=== PATIENT | male | born 1960 | race American Indian/Alaskan Native ===

== ENCOUNTER 2020-12-22 15:37 | Emergency (ER) | payer BC, OTHER ==
[~2020-12-22] VITALS: Ht 182.9 cm; Wt 95.5 kg
[~2020-12-22 15:37] MED LIST: IBUP-1984 PO; LACRIL OP; VALA500T41 PO; atenolol; ramipril
[2020-12-22] MEDS ORDERED: normal saline 1000ML IV soln IV ONE (15:55)
[2020-12-22] MEDS: folic acid 1mg/0.2ml inj IV ONE ×2 (15:55→16:37)
[2020-12-22] MEDS ORDERED: CefTRIAXone 2gm/D5W 50ml BAG 50 ML IV ONE (15:55)
[2020-12-22] MEDS ORDERED: thiamine 100mg/ml 2ml inj. IV ONE (15:55)
[2020-12-22 16:47] LABS: BASOPHILS # (AUTO) 0.1 X10'3 (0-0.2); BASOPHILS % (AUTO) 0.6 % (0-1); EOSINOPHILS # (AUTO) 0.1 X10'3 (0-0.9); EOSINOPHILS % (AUTO) 0.8 % (0-6); HEMATOCRIT 33.6 % (42.0-52.0); HEMOGLOBIN 11.4 g/dl (14.0-17.9); LYMPHOCYTES # (AUTO) 1.3 X10'3 (1.1-4.8); LYMPHOCYTES % (AUTO) 13.1 % (21-51); MEAN CORPUSCULAR HEMOGLOBIN 35.5 PG (27.0-31.0); MEAN CORPUSCULAR VOLUME 104.5 FL (78-98); MEAN PLATELET VOLUME 10.3 FL (7.4-10.4); MONOCYTES # (AUTO) 1.1 X10'3 (0-0.9); MONOCYTES % (AUTO) 10.8 % (2-12); NEUTROPHILS # (AUTO) 7.4 X10'3 (1.8-7.7); NEUTROPHILS % (AUTO) 74.7 % (42-75); PLATELET COUNT 104 X10'3 (140-440); RED BLOOD COUNT 3.21 X10'6 (4.70-6.10); RED CELL DISTRIBUTION WIDTH 14.1 % (11.5-14.5); WHITE BLOOD COUNT 9.8 X10'3 (4.5-11.0)
[2020-12-22 17:11] LABS: ALANINE AMINOTRANSFERASE 50 U/L (12-78); ALKALINE PHOSPHATASE 91 IU/L (46-116); ANION GAP 14 (8-16); ASPARTATE AMINO TRANSFERASE 181 U/L (10-37); BILIRUBIN,TOTAL 4.2 MG/DL (0.1-1.0); BLOOD UREA NITROGEN 15 MG/DL (7-18); BUN/CREATININE RATIO 9.6 (5.4-32.0); CALCIUM 7.9 MG/DL (8.5-10.1); CHLORIDE 96 MMOL/L (99-107); CREATININE 1.56 MG/DL (0.60-1.10); ETHANOL < 0.010 GM/DL (0.0-0.010); GLUCOSE 102 MG/DL (70-104); POTASSIUM 3.8 MMOL/L (3.5-5.1); SODIUM 133 MMOL/L (135-145); TOTAL CARBON DIOXIDE 22.8 MMOL/L (24-32); TROPONIN I < 0.04 NG/ML (0.0-0.05); eGFR 45 ML/MIN
--- NOTE | 2020-12-22 17:11 | NUR ---
patient reports drinkimg 5-6 bottles of wine daily
--- NOTE | 2020-12-22 17:36 | NUR ---
TO CT SCAN
[2020-12-22 17:51] LABS: ALBUMIN/GLOBULIN RATIO 0.3 (1.1-1.5); LIPASE 195 U/L (73-393)
[2020-12-22] MEDS ORDERED: iohexol 350MG/ML 100ml bottle IV ONE (18:46)
[2020-12-22] MEDS ORDERED: iohexol 350 MG/ML 50ML vial IV ONE (18:47)
[2020-12-22 19:11] LABS: CLARITY,URINE CLEAR (Clear); COLOR,URINE YELLOW (Yellow); GLUCOSE, URINE NEGATIVE (Neg); KETONES,URINE TRACE mg/dl (Neg); LEUKOCYTE ESTERASE ,URINE TRACE (Neg); NITRITES, URINE POSITIVE (Neg); OCCULT BLOOD,URINE LARGE (Neg); PH,URINE 6.5 (4.8-8.0); PROTEIN,URINE 30 mg/dl (Neg)
[2020-12-22 19:19] LABS: URINE AMPHETAMINE SCREEN NEGATIVE (Neg); URINE BARBITUATE SCREEN NEGATIVE (Neg); URINE BENZODIAZEPINES SCREEN NEGATIVE (Neg); URINE CANNABINOID SCREEN NEGATIVE (Neg); URINE COCAINE SCREEN NEGATIVE (Neg); URINE METHADONE SCREEN NEGATIVE (Neg); URINE OPIATE SCREEN NEGATIVE (Neg); URINE PHENCYCLIDINE SCREEN NEGATIVE (Neg)
[2020-12-22 19:25] LABS: UA COLLECTION TYPE NON-SPECIFIED
[2020-12-22 19:26] LABS: BACTERIA,URINE FEW /HPF (Neg)
[2020-12-22 19:27] LABS: SQUAMOUS EPITHELIAL CELL,UR FEW /LPF (FEW)
[2020-12-22] MEDS ORDERED: LIDOcaine 2% 10ml TOPICAL JELLY (Urojet) TP ONE (21:00)
--- NOTE | 2020-12-22 21:14 | NUR ---
patient used urinal : 300 dk maggie urine in urinal but his pants and bed soaked in urine, pericare done, patient oob to chair and assited cleaning himself up, bandaid ti scab he scratched on back: complete linen change, dressing removed from posterior right calf: asked yelitza morales to look at it with me, clean gown and socks applied. 3 warm blankets
[2020-12-22] MEDS ORDERED: LORazepam 2 mg/ml vial IV ONE (23:15)
[2020-12-23] MEDS ORDERED: ciprofloxacin 0.3% 2.5ml ophthalmic solution LEFTEYE ONE (01:55)
--- NOTE | 2020-12-23 02:03 | NUR ---
MIN FROM [facility] FOR CONDITION REPORT. REPORT GIVEN TO MELVI MOTA. PATIENT IS AWARE THAT HIS CARE WILL BE PROVIDED BY [facility], [facility] IN [place], [place].
--- NOTE | 2020-12-23 02:36 | NUR ---
SPOKE TO CHEMA FROM [facility] REGARDING FIXED WING VS HELICOPTER. HELICOPTER WOULD NEED TO REFUEL. DR MASTERSON IS OK WITH PATIENT FLYING HELICOPTER AND HAVING TO STOP FOR FUEL. [facility] CAKLLED BACK FOR HELICOPTER
--- NOTE | 2020-12-23 03:17 | NUR ---
Spoke to patient's daughter and updated her on the pending transfer.
--- NOTE | 2020-12-23 04:15 | NUR ---
[facility] ARRIVED FOR PATIENT TRANSFER. REPORT TO FLIGHT STAFF.
[2020-12-23] MEDS ORDERED: acetaminophen 325mg tablet PO ONE (04:20)
[2020-12-23 04:45] VITALS: BP 131/104
== END 2020-12-23 04:47 | disposition short-term general hospital (02) ==
LOC: ER 15:38
DX: S05.02XA Injury of conjunctiva and corneal abrasion without foreign body, left eye, initial encounter (principal); Z20.822 Contact with and (suspected) exposure to COVID-19; I72.3 Aneurysm of iliac artery; K70.31 Alcoholic cirrhosis of liver with ascites; A41.9 Sepsis, unspecified organism; L03.115 Cellulitis of right lower limb; R41.0 Disorientation, unspecified; R07.81 Pleurodynia; R53.83 Other fatigue
CPT/HCPCS: 36415; 51702; 70450; 71045; 74176; 75635; 76700; 80053; 80305; 80320; 81001; 82140; 82948; 83605; 83690; 84145; 84484; 85025; 85610; 87040; 87088; 87635; 93005; 96361; 96365; 96375; 99291; 99292; C9803; J0696; J2060; J3411; J3490; J7030; Q9967

== ENCOUNTER 2021-03-02 08:18 | Day surgery (SDC) | payer BC, OTHER ==
[~2021-03-02] VITALS: Ht 182.9 cm; Wt 92.4 kg
[2021-03-02] VITALS (8 sets, daily range): BP systolic 127–139; BP diastolic 87–98
[2021-03-02] MEDS ORDERED: SPIR50TA PO (09:15)
[2021-03-02] MEDS ORDERED: THIA50TA10 PO (09:15)
[2021-03-02] MEDS ORDERED: BACI3.5O5 EACHEYE (09:15)
[2021-03-02] MEDS ORDERED: OMEP-50 PO (09:15)
[2021-03-02] MEDS ORDERED: ATR0.5NEB IH (09:21)
[2021-03-02] MEDS ORDERED: CHOL100046 PO (09:21)
[2021-03-02] MEDS ORDERED: LACT10SO3 PO (09:21)
[2021-03-02] MEDS ORDERED: FOLI0.4T14 PO (09:21)
[2021-03-02] MEDS ORDERED: ZINC50TA67 PO (09:21)
[2021-03-02] MEDS ORDERED: RIFA550T PO (09:21)
[2021-03-02] MEDS ORDERED: FURO-149 PO (09:21)
[2021-03-02] MEDS ORDERED: LORA10TA7 PO (09:21)
[2021-03-02] MEDS ORDERED: MELA5TAB12 PO (09:21)
[2021-03-02] MEDS ORDERED: MULT-1085 PO (09:26)
[2021-03-02] MEDS ORDERED: DEXT15LI3 PO (09:26)
[2021-03-02] MEDS ORDERED: HYDR-3686 PO (09:26)
[2021-03-02] MEDS ORDERED: OLAN5TAB5 PO (09:26)
[2021-03-02] MEDS ORDERED: DEXT15DR7 OP (09:26)
[2021-03-02] MEDS ORDERED: ACET-1008 PO (09:26)
[2021-03-02] MEDS ORDERED: albumin 25% 100mL bottle x 1 IV PRN (10:30)
[2021-03-02] MEDS ORDERED: normal saline 1000ml 1,000 ML IV PRN (10:35)
== END 2021-03-02 11:15 | disposition home or self-care (01) ==
LOC: SSTAY O 08:18
PROVIDERS: ATTEND Radiology Vascular & Interventional Radiology
DX: K70.31 Alcoholic cirrhosis of liver with ascites (principal); K21.9 Gastro-esophageal reflux disease without esophagitis; F20.9 Schizophrenia, unspecified; I11.0 Hypertensive heart disease with heart failure; I50.9 Heart failure, unspecified; Z90.49 Acquired absence of other specified parts of digestive tract; Z98.890 Other specified postprocedural states; Z72.89 Other problems related to lifestyle; Z79.899 Other long term (current) drug therapy
CPT/HCPCS: 49083

== ENCOUNTER 2021-03-28 12:19 | Emergency (ER) | payer BC, OTHER ==
[~2021-03-28] VITALS: Ht 182.9 cm; Wt 85.5 kg
[~2021-03-28 12:19] MED LIST changes: +ACET-1008 PO; +ATR0.5NEB IH; +BACI3.5O5 EACHEYE; +CHOL100046 PO; +DEXT15DR7 OP; +DEXT15LI3 PO; +FOLI0.4T14 PO; +FURO-149 PO; +HYDR-3686 PO; -IBUP-1984 PO; +LACT10SO3 PO; +LORA10TA7 PO; +MELA5TAB12 PO; +MULT-1085 PO; +OLAN5TAB5 PO; +OMEP-50 PO; +RIFA550T PO; +SPIR50TA PO; +THIA50TA10 PO; -VALA500T41 PO; +ZINC50TA67 PO; -atenolol; -ramipril
[2021-03-28 13:47] LABS: BASOPHILS # (AUTO) 0.1 X10'3 (0-0.2); BASOPHILS % (AUTO) 0.8 % (0-1); EOSINOPHILS # (AUTO) 0.2 X10'3 (0-0.9); EOSINOPHILS % (AUTO) 3.2 % (0-6); HEMATOCRIT 35.3 % (42.0-52.0); HEMOGLOBIN 11.8 g/dl (14.0-17.9); LYMPHOCYTES # (AUTO) 1.5 X10'3 (1.1-4.8); LYMPHOCYTES % (AUTO) 22.3 % (21-51); MEAN CORPUSCULAR HEMOGLOBIN 29.6 PG (27.0-31.0); MEAN CORPUSCULAR HGB CONC 33.5 g/dL (33.0-36.5); MEAN CORPUSCULAR VOLUME 88.5 FL (78-98); MEAN PLATELET VOLUME 8.3 FL (7.4-10.4); MONOCYTES # (AUTO) 0.8 X10'3 (0-0.9); MONOCYTES % (AUTO) 11.4 % (2-12); NEUTROPHILS # (AUTO) 4.3 X10'3 (1.8-7.7); NEUTROPHILS % (AUTO) 62.3 % (42-75); PLATELET COUNT 181 X10'3 (140-440); RED BLOOD COUNT 3.99 X10'6 (4.70-6.10); RED CELL DISTRIBUTION WIDTH 14.2 % (11.5-14.5); WHITE BLOOD COUNT 6.9 X10'3 (4.5-11.0)
[2021-03-28 13:59] LABS: ALANINE AMINOTRANSFERASE 10 U/L (12-78); ALBUMIN 1.8 G/DL (3.4-5.0); ALBUMIN/GLOBULIN RATIO 0.3 (1.1-1.5); ALKALINE PHOSPHATASE 86 IU/L (46-116); ANION GAP 9 (8-16); ASPARTATE AMINO TRANSFERASE 25 U/L (10-37); BLOOD UREA NITROGEN 10 MG/DL (7-18); BUN/CREATININE RATIO 10.9 (5.4-32.0); CALCIUM 7.9 MG/DL (8.5-10.1); CHLORIDE 101 MMOL/L (99-107); CREATININE 0.92 MG/DL (0.60-1.10); GLUCOSE 119 MG/DL (70-104); POTASSIUM 3.4 MMOL/L (3.5-5.1); SODIUM 134 MMOL/L (135-145); TOTAL PROTEIN 7.6 G/DL (6.4-8.2); eGFR 84 ML/MIN
[2021-03-28] MEDS ORDERED: CEPH-585 PO (15:39)
[2021-03-28 16:07] VITALS: BP 136/99
[2021-03-28] MEDS ORDERED: CEFD300C22 PO (16:14)
== END 2021-03-28 16:09 | disposition home or self-care (01) ==
LOC: ER 12:19
DX: S81.802A Unspecified open wound, left lower leg, initial encounter (principal); S81.801A Unspecified open wound, right lower leg, initial encounter; R50.9 Fever, unspecified; R11.10 Vomiting, unspecified; I10 Essential (primary) hypertension; Z72.89 Other problems related to lifestyle; Z56.0 Unemployment, unspecified; Z79.2 Long term (current) use of antibiotics; Z79.899 Other long term (current) drug therapy; K70.30 Alcoholic cirrhosis of liver without ascites; X58.XXXA Exposure to other specified factors, initial encounter; Y93.89 Activity, other specified; Y92.89 Other specified places as the place of occurrence of the external cause; Y99.8 Other external cause status
CPT/HCPCS: 36415; 71045; 80053; 83605; 84145; 85025; 87040; 99284

== ENCOUNTER 2021-12-07 07:09 | Day surgery (SDC) | payer BC, OTHER ==
[2021-12-07] VITALS (10 sets, daily range): BP systolic 109–128; BP diastolic 78–90
[~2021-12-07] VITALS: Ht 182.9 cm; Wt 83.1 kg
[~2021-12-07 07:09] MED LIST changes: +LIDOcaine 1%/PF 5ML 10 MG/ML VIAL SQ ONE; -OMEP-50 PO; +OMEP20CA16 PO
[2021-12-07] MEDS: albumin 25% 100mL bottle x 1 IV PRN ×2 (09:08→09:48)
== END 2021-12-07 11:00 | disposition home or self-care (01) ==
LOC: SSTAY O 07:09
PROVIDERS: ATTEND Radiology Vascular & Interventional Radiology
DX: K70.31 Alcoholic cirrhosis of liver with ascites (principal); K21.9 Gastro-esophageal reflux disease without esophagitis; F20.9 Schizophrenia, unspecified; I11.0 Hypertensive heart disease with heart failure; I50.9 Heart failure, unspecified; F10.20 Alcohol dependence, uncomplicated; Z98.890 Other specified postprocedural states; Z79.899 Other long term (current) drug therapy; Z88.8 Allergy status to other drugs, medicaments and biological substances
CPT/HCPCS: 49083; J3490; P9047

== ENCOUNTER 2022-08-10 12:29 | Emergency (ER) | payer BC, OTHER ==
[~2022-08-10] VITALS: Ht 182.9 cm; Wt 70.0 kg
[~2022-08-10 12:29] MED LIST changes: -ATR0.5NEB IH; -DEXT15LI3 PO; -LIDOcaine 1%/PF 5ML 10 MG/ML VIAL SQ ONE; -OLAN5TAB5 PO
[2022-08-10 12:47] VITALS: BP 99/77
[2022-08-10 13:24] LABS: BASOPHILS % (AUTO) 0.7 % (0-1); EOSINOPHILS # (AUTO) 0.1 X10'3 (0-0.9); EOSINOPHILS % (AUTO) 2.3 % (0-6); HEMATOCRIT 24.1 % (42.0-52.0); HEMOGLOBIN 7.7 g/dl (14.0-17.9); LYMPHOCYTES # (AUTO) 1.2 X10'3 (1.1-4.8); LYMPHOCYTES % (AUTO) 29.2 % (21-51); MEAN CORPUSCULAR HEMOGLOBIN 28.2 PG (27.0-31.0); MEAN CORPUSCULAR HGB CONC 32.1 g/dL (33.0-36.5); MEAN CORPUSCULAR VOLUME 87.8 FL (78-98); MEAN PLATELET VOLUME 7.6 FL (7.4-10.4); MONOCYTES # (AUTO) 0.4 X10'3 (0-0.9); MONOCYTES % (AUTO) 8.5 % (2-12); NEUTROPHILS # (AUTO) 2.5 X10'3 (1.8-7.7); NEUTROPHILS % (AUTO) 59.3 % (42-75); PLATELET COUNT 183 X10'3 (140-440); RED BLOOD COUNT 2.75 X10'6 (4.70-6.10); WHITE BLOOD COUNT 4.2 X10'3 (4.5-11.0)
[2022-08-10 13:46] LABS: ALANINE AMINOTRANSFERASE 17 U/L (12-78); ALBUMIN 1.8 G/DL (3.4-5.0); ALBUMIN/GLOBULIN RATIO 0.5 (1.1-1.5); ALKALINE PHOSPHATASE 145 IU/L (46-116); ANION GAP 6 (8-16); ASPARTATE AMINO TRANSFERASE 36 U/L (10-37); BILIRUBIN,TOTAL 0.4 MG/DL (0.1-1.0); BLOOD UREA NITROGEN 31 MG/DL (7-18); BUN/CREATININE RATIO 18.6 (5.4-32.0); CHLORIDE 103 MMOL/L (99-107); CREATININE 1.67 MG/DL (0.60-1.10); GLUCOSE 98 MG/DL (70-104); POTASSIUM 4.8 MMOL/L (3.5-5.1); SODIUM 131 MMOL/L (135-145); TOTAL CARBON DIOXIDE 22.3 MMOL/L (24-32); TOTAL PROTEIN 5.4 G/DL (6.4-8.2); eGFR 42 ML/MIN
[2022-08-10] MEDS ORDERED: normal saline 1000ml 1,000 ML IV ONE (14:40)
[2022-08-10 15:01] LABS: BASOPHILS % (AUTO) 0.9 % (0-1); EOSINOPHILS # (AUTO) 0.1 X10'3 (0-0.9); EOSINOPHILS % (AUTO) 1.6 % (0-6); HEMOGLOBIN 8.1 g/dl (14.0-17.9); LYMPHOCYTES # (AUTO) 1.3 X10'3 (1.1-4.8); LYMPHOCYTES % (AUTO) 25.7 % (21-51); MEAN CORPUSCULAR HEMOGLOBIN 28.6 PG (27.0-31.0); MEAN CORPUSCULAR HGB CONC 32.3 g/dL (33.0-36.5); MEAN CORPUSCULAR VOLUME 88.5 FL (78-98); MEAN PLATELET VOLUME 7.7 FL (7.4-10.4); MONOCYTES # (AUTO) 0.4 X10'3 (0-0.9); MONOCYTES % (AUTO) 8.3 % (2-12); NEUTROPHILS # (AUTO) 3.1 X10'3 (1.8-7.7); NEUTROPHILS % (AUTO) 63.5 % (42-75); PLATELET COUNT 163 X10'3 (140-440); RED BLOOD COUNT 2.82 X10'6 (4.70-6.10); RED CELL DISTRIBUTION WIDTH 15.1 % (11.5-14.5); WHITE BLOOD COUNT 4.9 X10'3 (4.5-11.0)
== END 2022-08-10 16:49 | disposition home or self-care (01) ==
LOC: ER 12:29
DX: D64.9 Anemia, unspecified (principal); I10 Essential (primary) hypertension; Z56.0 Unemployment, unspecified; Z79.899 Other long term (current) drug therapy
CPT/HCPCS: 36415; 80053; 85025; 86885; 86900; 86901; 99284; J7030

== ENCOUNTER 2022-08-28 08:20 | Day surgery (SDC) | payer BC, OTHER ==
[~2022-08-28] VITALS: Ht 182.9 cm; Wt 65.9 kg
[2022-08-28] VITALS (11 sets, daily range): BP systolic 89–114; BP diastolic 59–80
[2022-08-28] MEDS ORDERED: LIDOcaine 1% 30ml preserv. free vial IJ STA (08:36)
[2022-08-28] MEDS ORDERED: LIOT25TA12 PO (09:04)
[2022-08-28] MEDS ORDERED: FLO0.4C PO (09:04)
[2022-08-28] MEDS ORDERED: HYDR-3972 PO (09:04)
[2022-08-28] MEDS ORDERED: PANT40TA54 PO (09:04)
[2022-08-28] MEDS ORDERED: FOLI1TAB27 PO (09:04)
[2022-08-28] MEDS ORDERED: CALC-336 PO (09:06)
[2022-08-28] MEDS ORDERED: CBD Gummies PO (09:06)
[2022-08-28] MEDS ORDERED: normal saline 1000ml 1,000 ML IV SCH (09:50)
[2022-08-28] MEDS: albumin 25% 100mL bottle x 1 IV PRN ×3 (10:03→11:31)
--- NOTE | 2022-08-28 11:48 | NUR ---
Caregiver Santy notified of current pt status. Addendum: 08/28/22 at 1148 by Servando Diallo RN Amended: Links added.
== END 2022-08-28 13:05 | disposition home or self-care (01) ==
LOC: SSTAY O 08:20
PROVIDERS: ATTEND Radiology Vascular & Interventional Radiology
DX: K70.31 Alcoholic cirrhosis of liver with ascites (principal); G51.0 Bell's palsy; K21.9 Gastro-esophageal reflux disease without esophagitis; I50.9 Heart failure, unspecified; I11.0 Hypertensive heart disease with heart failure; F20.89 Other schizophrenia; Z98.890 Other specified postprocedural states; Z88.8 Allergy status to other drugs, medicaments and biological substances; Z79.899 Other long term (current) drug therapy
CPT/HCPCS: 49083; J3490; J7030; P9047; A6258